=== PATIENT | male | born 1975 ===

== ENCOUNTER → 2018-09-02 13:59 | Outpatient (CLI) | payer OTHER | END | disposition home or self-care (01) | LOC: LAB 13:59 | DX: A49.3 Mycoplasma infection, unspecified site (principal) ==

== ENCOUNTER 2019-02-05 07:44 | Outpatient (CLI) | payer OTHER | END 2019-02-05 07:52 | disposition home or self-care (01) | LOC: LAB 07:44 | DX: R06.09 Other forms of dyspnea (principal); R09.02 Hypoxemia ==

== ENCOUNTER 2019-02-05 09:07 | Outpatient (CLI) | payer OTHER | END 2019-02-05 13:19 | disposition home or self-care (01) | LOC: TOM 09:07 | DX: R09.02 Hypoxemia (principal); R06.09 Other forms of dyspnea | CPT/HCPCS: 71275 ==